=== PATIENT | female | born 1960 | race Caucasian/White ===

== ENCOUNTER 2016-09-30 12:09 | Emergency (ER) | payer BC ==
[2016-09-30] MEDS ORDERED: Aspirin Low Dose CHEW TAB* 81 MG PO ONE (13:12)
[2016-09-30 13:25] LABS: Hematocrit 38 % (35-47); Hemoglobin 12.8 g/dl (12.0-16.0); Mean Corpuscular HGB Conc 33 g/dl (31-36); Mean Corpuscular Hemoglobin 34 pg (27-31); Mean Corpuscular Volume 101 fL (80-97); Mean Platelet Volume 9 um3 (7.4-10.4); Red Cell Distribution Width 13 % (10.5-15)
[2016-09-30 13:45] LABS: Albumin 3.8 g/dL (3.2-5.2); BUN/Creatinine Ratio 17.8 (8-20); Calcium 9.3 mg/dL (8.6-10.3); EGFR African American 106.1 (>60); EGFR Non-African American 82.5 (>60); Globulin 2.8 g/dL (2-4); Total Bilirubin 0.7 mg/dL (0.2-1.0); Total Protein 6.6 g/dL (6.4-8.9)
--- NOTE | 2016-09-30 13:56 | RAD ---
INDICATION: Chest pain COMPARISON: October 27, 2014 TECHNIQUE: An AP portable view obtained at 1320 hours is submitted. FINDINGS: Bones/Soft Tissues: There are no acute bony findings. Cardiomediastinal: The cardiomediastinal silhouette is normal. Lungs: There are no infiltrates. Pleura: There are no pleural effusions. Other: None IMPRESSION: NO ACTIVE DISEASE
[2016-09-30 16:27] LABS: Anion Gap 9 mmol/L (2-11); POC CO2 Carbon Dioxide 28 mmol/L (24-29); POC Chloride 105 mmol/L (98-109); POC Potassium 4.4 mmol/L (3.5-4.9); POC Sodium 142 mmol/L (138-146)
[2016-09-30 16:28] LABS: EGFR African American 111.3 (>60); EGFR Non-African American 86.6 (>60); Manual Entry Verification MD; POC Glucose 90 mg/dL (70-105)
[2016-09-30 16:47] VITALS: BP 139/76
--- NOTE | 2016-09-30 19:47 | ED ---
I, Oh,Soohyun, scribed for Marcus Lozano MD on 09/30/16 at 1337 . HPI Chest Pain - HPI Summary HPI Summary: sudden onset of CP at 1130 AM this morning. Pain radiates to back and is described as sharp/stabbing pain. Pain is waxing and waning, and is still present. Positive subjective, pt is unsure if it is one of her hot flashes or associated to her episode of CP. No modifying factor. PMHx includes anxiety and panic attack. Pt is currently alprazolam. She skipped her morning dose. She denies her usual panic attacks being associated with any pain. - History of Current Complaint Chief Complaint: EDChestPainROMI Time Seen by Provider: 09/30/16 12:45 Hx Obtained From: Patient, Medical Records Pain Intensity: 1 Pain Scale Used: 0-10 Numeric Chest Pain Location: Mid Sternal Chest Pain Radiates: Yes Chest Pain Radiates To:: Back Character: Sharp/Stabbing Aggravating Factor(s): Nothing Alleviating Factor(s): Nothing Associated Signs and Symptoms: Positive: Chest Pain, Dizziness, Fever - Pt is unsure if she - Allergy/Home Medications Allergies/Adverse Reactions: Allergies Allergy/AdvReac Type Severity Reaction Status Date / Time Codeine Allergy N/V, Verified 09/30/16 12:35 THROAT AND EYES SWELL BEES Allergy Swelling Uncoded 09/30/16 12:35 Home Medications: Home Medications Lisinopril TAB* [Prinivil TAB*] 5 mg PO DAILY 09/30/16 [History Confirmed ] Omeprazole CAP* [Prilosec CAP* 20 MG] 40 mg PO DAILY 09/30/16 [History Confirmed 09/30/16] PMH/Surg Hx/FS Hx/Imm Hx Cardiovascular History: Denies: Other Cardiovascular Problems/Disorders Respiratory History: Denies: Other Respiratory Problems/Disorders GI History: Reports: Hx Gastroesophageal Reflux Disease - ON MEDS Denies: Other GI Disorders History: Denies: Other Problems/Disorders Musculoskeletal History: Denies: Other Musculoskeletal History Sensory History: Denies: Hx Contacts or Glasses, Hx Hearing Aid Opthamlomology History: Denies: Hx Contacts or Glasses Neurological History: Denies: Other Neuro Impairments/Disorders Psychiatric History: Reports: Hx Anxiety - ON MEDS - Cancer History Hx Chemotherapy: No Hx Radiation Therapy: No - Surgical History Surgery Procedure, Year, and Place: [facility], C SECTION, 1985. 1994, RIGHT CTR, [facility] [place]. 2009, COLON RESECTION, [facility] [place] Hx Anesthesia Reactions: No - DECREASED BP Infectious Disease History: No Infectious Disease History: Denies: Traveled Outside the [place] in Last 30 Days - Family History Known Family History: Positive: Cardiac Disease - CHF with unknown etiology to father at age of 56 Family History: Positive for CA to mother - Social History Alcohol Use: Daily Alcohol Amount: 4 glasses of wine Hx Substance Use: No Substance Use Type: Reports: None Hx Tobacco Use: Yes Smoking Status (MU): Heavy Every Day Tobacco Smoker Review of Systems Positive: Fever - subjective Positive: Chest Pain - radiating to back Neurological: Other - Positive for dizziness All Other Systems Reviewed And Are Negative: Yes Physical Exam Triage Information Reviewed: Yes Vital Signs On Initial Exam: Initial Vitals Temp Pulse Resp BP Pulse Ox 99.3 F 77 16 152/86 99 09/30/16 12:11 09/30/16 12:11 09/30/16 12:11 09/30/16 12:11 09/30/16 12:11 Vital Signs Reviewed: Yes Appearance: Positive: Well-Appearing, No Pain Distress Skin: Positive: Warm, Skin Color Reflects Adequate Perfusion Head/Face: Positive: Normal Head/Face Inspection Eyes: Positive: Normal Neck: Positive: Supple, Nontender Respiratory/Lung Sounds: Positive: Other - Course crackles upper respiratory tract Cardiovascular: Positive: Normal - Chest pain is nonproducible to palpation, RRR , Pulses are Symmetrical in both Upper and Lower Extremities Abdomen Description: Positive: Nontender, Soft Musculoskeletal: Positive: Normal Neurological: Positive: Normal Psychiatric: Positive: Normal AVPU Assessment: Alert - Wendy Coma Scale Coma Scale Total: 15 Diagnostics - Vital Signs Vital Signs Temp Pulse Resp BP Pulse Ox 09/30/16 12:35 69 11 97 09/30/16 12:34 163/85 09/30/16 12:30 97.3 F 68 14 163/85 97 09/30/16 12:11 99.3 F 77 16 152/86 99 - Laboratory Lab Results: Lab Results 09/30/16 09/30/16 09/30/16 Range/Units 12:55 12:55 12:55 WBC 6.0 (3.5-10.8) 10^3/ul RBC 3.80 L (4.0-5.4) 10^6/ul Hgb 12.8 (12.0-16.0) g/dl Hct 38 (35-47) % MCV 101 H (80-97) fL MCH 34 H (27-31) pg MCHC 33 (31-36) g/dl RDW 13 (10.5-15) % Plt Count 170 (150-450) 10^3/ul MPV 9 (7.4-10.4) um3 Neut % (Auto) 64.8 (38-83) % Lymph % (Auto) 23.4 L (25-47) % Mcnairy % (Auto) 8.4 (1-9) % Eos % (Auto) 2.3 (0-6) % Baso % (Auto) 1.1 (0-2) % Absolute Neuts (auto) 3.9 (1.5-7.7) 10^3/ul Absolute Lymphs (auto) 1.4 (1.0-4.8) 10^3/ul Absolute Monos (auto) 0.5 (0-0.8) 10^3/ul Absolute Eos (auto) 0.1 (0-0.6) 10^3/ul Absolute Basos (auto) 0.1 (0-0.2) 10^3/ul Absolute Nucleated RBC 0.01 10^3/ul Nucleated RBC % 0.1 D-Dimer, Quantitative (Less Than 230) ng/mL POC Venous Sodium (138-146) mmol/L Sodium 139 (133-145) mmol/L POC Venous Potassium (3.5-4.9) mmol/L Potassium 4.0 (3.5-5.0) mmol/L POC Venous Chloride (98-109) mmol/L Chloride 106 (101-111) mmol/L Carbon Dioxide 27 (22-32) mmol/L POC Venous Total CO2 (24-29) mmol/L Anion Gap 6 (2-11) mmol/L BUN 13 (6-24) mg/dL POC Venous BUN (8-26) mg/dL Creatinine 0.73 (0.51-0.95) mg/dL POC Venous Creatinine (0.6-1.3) mg/dL Est GFR ( Amer) 106.1 (>60) Est GFR (Non-Af Amer) 82.5 (>60) BUN/Creatinine Ratio 17.8 (8-20) Glucose 102 H (70-100) mg/dL POC Venous Glucose (70-105) mg/dL Lactic Acid 0.8 (0.5-2.0) mmol/L Calcium 9.3 (8.6-10.3) mg/dL Total Bilirubin 0.70 (0.2-1.0) mg/dL AST 32 (13-39) U/L ALT 30 (7-52) U/L Alkaline Phosphatase 69 (34-104) U/L Troponin I 0.00 (<0.04) ng/mL Total Protein 6.6 (6.4-8.9) g/dL Albumin 3.8 (3.2-5.2) g/dL Globulin 2.8 (2-4) g/dL Albumin/Globulin Ratio 1.4 (1-3) 09/30/16 09/30/16 09/30/16 Range/Units 12:55 16:08 16:08 WBC (3.5-10.8) 10^3/ul RBC (4.0-5.4) 10^6/ul Hgb (12.0-16.0) g/dl Hct (35-47) % MCV (80-97) fL MCH (27-31) pg MCHC (31-36) g/dl RDW (10.5-15) % Plt Count (150-450) 10^3/ul MPV (7.4-10.4) um3 Neut % (Auto) (38-83) % Lymph % (Auto) (25-47) % Mcnairy % (Auto) (1-9) % Eos % (Auto) (0-6) % Baso % (Auto) (0-2) % Absolute Neuts (auto) (1.5-7.7) 10^3/ul Absolute Lymphs (auto) (1.0-4.8) 10^3/ul Absolute Monos (auto) (0-0.8) 10^3/ul Absolute Eos (auto) (0-0.6) 10^3/ul Absolute Basos (auto) (0-0.2) 10^3/ul Absolute Nucleated RBC 10^3/ul Nucleated RBC % D-Dimer, Quantitative 211 (Less Than 230) ng/mL POC Venous Sodium 142 (138-146) mmol/L Sodium (133-145) mmol/L POC Venous Potassium 4.4 (3.5-4.9) mmol/L Potassium (3.5-5.0) mmol/L POC Venous Chloride 105 (98-109) mmol/L Chloride (101-111) mmol/L Carbon Dioxide (22-32) mmol/L POC Venous Total CO2 28 (24-29) mmol/L Anion Gap 9 (2-11) mmol/L BUN (6-24) mg/dL POC Venous BUN 13 (8-26) mg/dL Creatinine (0.51-0.95) mg/dL POC Venous Creatinine 0.70 (0.6-1.3) mg/dL Est GFR ( Amer) 111.3 (>60) Est GFR (Non-Af Amer) 86.6 (>60) BUN/Creatinine Ratio 18.6 (8-20) Glucose (70-100) mg/dL POC Venous Glucose 90 (70-105) mg/dL Lactic Acid (0.5-2.0) mmol/L Calcium (8.6-10.3) mg/dL Total Bilirubin (0.2-1.0) mg/dL AST (13-39) U/L ALT (7-52) U/L Alkaline Phosphatase (34-104) U/L Troponin I 0.00 (<0.04) ng/mL Total Protein (6.4-8.9) g/dL Albumin (3.2-5.2) g/dL Globulin (2-4) g/dL Albumin/Globulin Ratio (1-3) Result Diagrams: 09/30/16 12:55 09/30/16 12:55 Lab Statement: Any lab studies that have been ordered have been reviewed, and results considered in the medical decision making process. - Radiology CXR Xray Interpretation: No Acute Changes Radiology Interpretation Completed By: Radiologist - EKG 1217 Cardiac Rate: NL EKG Rhythm: Sinus Rhythm - 76 bpm Re-Evaluation - Re-Evaluation First Eval Re-Evaluation Time: 13:30 Comment: Pt agrees to repeat trop. Chest Pain Course/Dx - Course Course Of Treatment: Ms. Madden had the sudden onset of subxyphoid, sharp chest pain that radiated around and into her back. It was not accompanied by any other symptoms except perhaps diaphoresis but she says she has been having those anyway secondary to menopause. It then gradually faded away and when I saw her was only in her back and that resolved too. Her W/U including d-dimer and delayed troponin was negative. Her Well's score was 0 and her EDACS score 11. - Diagnoses Provider Diagnoses: Chest pain - Provider Notifications Discussed Care Of Patient With: Omkar Cesar Time Discussed With Above Provider: 15:33 Discharge - Discharge Plan Condition: Stable Disposition: HOME Patient Education Materials: Chest Pain (ED) Referrals: Ceci Prescott NP [Primary Care Provider] - 2 Days The documentation as recorded by the Freddie stewart Soohyun accurately reflects the service I personally performed and the decisions made by me, Marcus Lzoano MD.
== END 2016-09-30 17:08 | disposition home or self-care (01) ==
LOC: ED 12:09
DX: R07.9 Chest pain, unspecified (principal); R42 Dizziness and giddiness; R50.9 Fever, unspecified; F17.210 Nicotine dependence, cigarettes, uncomplicated
CPT/HCPCS: 36415; 71010; 80048; 80053; 83605; 84484; 85025; 85379; 93005; 99283